=== PATIENT | male | born 1980 | race Caucasian/White ===

== ENCOUNTER 2017-03-16 18:27 | Emergency (ER) | payer MEDICAID, OTHER ==
[~2017-03-16] VITALS: Ht 177.8 cm; Wt 77.2 kg
[~2017-03-16 18:27] MED LIST: DICL50TA8 PO; IBUP-1986 PO
[2017-03-16] MEDS ORDERED: SULF1TAB49 PO (19:11)
[2017-03-16] MEDS ORDERED: MUPI22OI30 TP (19:11)
[2017-03-16] MEDS ORDERED: DIPH25CA83 PO (19:11)
[2017-03-16] MEDS ORDERED: diphenhydrAMINE 25mg capsule PO ONE (19:20)
[2017-03-16 19:35] VITALS: BP 135/72
== END 2017-03-16 19:40 | disposition home or self-care (01) ==
LOC: ER 18:27
DX: L73.9 Follicular disorder, unspecified (principal); G89.29 Other chronic pain; F17.200 Nicotine dependence, unspecified, uncomplicated; F15.10 Other stimulant abuse, uncomplicated; Z86.14 Personal history of Methicillin resistant Staphylococcus aureus infection; Z59.0 Homelessness; Z79.899 Other long term (current) drug therapy
CPT/HCPCS: 99283; Q0163

== ENCOUNTER 2022-05-16 21:51 | Emergency (ER) | payer MEDICAID ==
[~2022-05-16 21:51] MED LIST changes: +DIPH25CA83 PO
== END 2022-05-16 23:51 | disposition left against medical advice (07) ==
LOC: ER 21:52
DX: K08.89 Other specified disorders of teeth and supporting structures (principal); Z53.21 Procedure and treatment not carried out due to patient leaving prior to being seen by health care provider